=== PATIENT | male | born 1955 | race Caucasian/White ===

== ENCOUNTER 2022-08-01 15:08 | Emergency (ER) | payer SELFPAY ==
[~2022-08-01] VITALS: Ht 165.1 cm; Wt 82.0 kg
[2022-08-01] MEDS ORDERED: IBUPROFEN 600MG TABLET PO STA (17:00)
[2022-08-01] MEDS ORDERED: ACETAMINOPHEN 325MG TABLET PO STA (17:00)
[2022-08-01 17:47] LABS: HEMATOCRIT. 46.1 % (42.0-52.0); HEMOGLOBIN. 15.7 g/dL (14.0-18.0); MEAN CORPUSCULAR HEMOGLOBIN 31.3 pg (28.0-32.0); MEAN CORPUSCULAR VOLUME 92.1 fL (80.0-94.0); PLATELET 151 x1000/uL (130-400); RED BLOOD CELL COUNT 5.01 mill/uL (4.7-6.1); RED CELL DISTRIBUTION WIDTH 13.8 % (11.6-14.6)
[2022-08-01 17:53] LABS: CHLORIDE 98 mEq/L (98-107)
[2022-08-01 18:18] LABS: CLARITY URINE CLOUDY (CLEAR); COLOR URINE DARK YELLOW (YELLOW); KETONES URINE TRACE (NEGATIVE); LEUKOCYTE ESTERASE URINE NEGATIVE (NEGATIVE); NITRITE URINE NEGATIVE (NEGATIVE); OCCULT BLOOD URINE TRACE (NEGATIVE); PH URINE 5.5 (4.5-8.0); PROTEIN URINE 2+ (NEGATIVE); SPECIFIC GRAVITY URINE 1.029 (1.005-1.030)
[2022-08-01 19:04] VITALS: BP 131/85
[2022-08-01 19:59] LABS: PLATELET ESTIMATE NORMAL
== END 2022-08-01 19:05 | disposition home or self-care (01) ==
LOC: ER 15:08
DX: B34.9 Viral infection, unspecified (principal); I10 Essential (primary) hypertension; Z90.49 Acquired absence of other specified parts of digestive tract; Z20.822 Contact with and (suspected) exposure to COVID-19
CPT/HCPCS: 36415; 80053; 81003; 85025; 87426; 87804; 99283; C9803